=== PATIENT | male | born 1945 | race Caucasian/White ===

== ENCOUNTER 2018-12-19 13:11 | Inpatient (IN) | payer OTHER ==
[2018-12-19] VITALS (19 sets, daily range): BP systolic 93–128; BP diastolic 49–80
[~2018-12-19] VITALS: Ht 167.6 cm; Wt 97.1 kg
[2018-12-19 13:38] LABS: HEMATOCRIT 54.8 % (42.0-52.0); HEMOGLOBIN 17.4 g/dl (14.0-18.0); MEAN CELL VOLUME 101.5 fl (80.0-94.0); MEAN CORPUSCULAR HGB 32.2 pg (27.0-31.0); MEAN CORPUSCULAR HGB CONC 31.8 g/dl (33.0-37.0); MEAN PLATELET VOLUME 10.3 fl (9.6-12.3); NUCLEATED RED BLOOD CELL 0.1 % (0.0-0.0); PLATELET COUNT AUTOMATED 298 10*3/uL (130-400); RED CELL DISTRI WIDTH 13.6 % (0-14.5); WHITE BLOOD COUNT 22.9 10*3/uL (4.8-10.8)
[2018-12-19 13:49] LABS: ACT PARTIAL THROMBO TIME 29.6 SECONDS (20.0-32.1)
[2018-12-19 13:56] LABS: PLATELET SUFFICIENCY NORMAL (NORMAL); TOTAL CELLS COUNTED 100 #CELLS
[2018-12-19 14:00] LABS: ALBUMIN 3.2 gm/dl (3.1-4.5); CREATININE 1.69 mg/dL (0.70-1.30); POTASSIUM 3.6 mmol/L (3.5-5.1); TOTAL PROTEIN 8.1 gm/dL (6.4-8.2)
[2018-12-19 14:06] LABS: TROPONIN I 0.048 ng/ml (<0.045)
--- NOTE | 2018-12-19 14:11 | NUR ---
DR ROSE AWARE OF CRITICAL TROPONIN OF 0.048.
--- NOTE | 2018-12-19 15:31 | NUR ---
DR ROSE AWARE OF HEARTRATE IN THE 120'S. NO NEW ORDERS RECIEVED AT THIS TIME.
--- NOTE | 2018-12-19 16:00 | NUR ---
PT UNABLE TO ANSWER QUESTIONS AT THIS TIME, PT UNABLE TO OBEY COMMANDS AT THIS TIME. DR ROSE AWARE AND NEW ORDERS RECIEVED AT THIS TIME.
[2018-12-19 16:01] LABS: ABG BASE EXCESS 0.8 mmol/L (-2.0-2.0); ABG HCO3 35.7 mmol/l (22-26); ABG O2 SATURATION 98.2 % (95-97)
[2018-12-19 16:04] LABS: ARTERIAL BLOOD GAS PH 7.127 (7.35-7.45)
--- NOTE | 2018-12-19 16:10 | NUR ---
PT TAKEN TO ROOM [address] ROSE.
--- NOTE | 2018-12-19 16:25 | NUR ---
PT INTUBATED WITH 7.5 ETT 23 @ THE LIP. PLACEMENT CONFIRMED WITH CO2 DETECTOR. BILATERAL BREATH SOUNDS ASCULATED. ETT TUBED SECURED 23 @ LIP. DR[address] MILTON DEL VALLE PRESENT AT BEDSIDE DURING PROCEDURE. VITALS 115-120, SATS 97-100%, PT PLACED ON VENT. WILL CONTINUE MONITOR.
--- NOTE | 2018-12-19 16:25 | NUR ---
1624 100MG SUCCINYLCHOLINE GIVEN IV. 1624 20MG ETOMIDATE GIVEN IV. 1625 PT INTUBATED AT 23 LIP, WITH 7.5 SIZE TUBE. PT TOLERATED.
[2018-12-19 17:06] LABS: ABG BASE EXCESS -1.8 mmol/L (-2.0-2.0); ABG HCO3 34.1 mmol/l (22-26); ARTERIAL BLOOD GAS PO2 81.2 mmHg (80-90)
[2018-12-19 17:09] LABS: ARTERIAL BLOOD GAS PH 7.099 (7.35-7.45)
[2018-12-19 17:46] LABS: ABG BASE EXCESS -0.4 mmol/L (-2.0-2.0); ABG HCO3 32.4 mmol/l (22-26); ABG O2 SATURATION 95.2 % (95-97); ARTERIAL BLOOD GAS PO2 89.3 mmHg (80-90)
[2018-12-19 17:49] LABS: ARTERIAL BLOOD GAS PH 7.165 (7.35-7.45)
[2018-12-19 17:50] LABS: ARTERIAL BLOOD GAS PCO2 93.7 mmHg (35-45)
--- NOTE | 2018-12-19 18:33 | NUR ---
SET RATE INCREASED TO 20 FROM 16 DUE TO ABG RESULTS PER . WILL CONTINUE TO REASSESS PT NEEDED.
--- NOTE | 2018-12-19 20:10 | NUR ---
A 73, admitted to ICCU, under the services of SHIRA Nguyễn DO with a diagnosis of SEVERE SEPSIS, RESP. FAILURE. Chief complaint is SHORTNESS OF BREATH. Patient arrived via stretcher from ER. Monitor applied. Initial assessment completed. Vital signs taken and recorded. SHIRA NGUYỄN DO notified of admission to the unit. Orders received. See assessment for past medical history, medications and allergies. Patient and/or family oriented to unit. [facility] ICCU visitation policy reviewed. Clothing/patient valuable form completed. BONG PUCKETT A
[2018-12-19] MEDS ORDERED: Glimepiride1 MG PO (20:35)
[2018-12-19 21:18] LABS: ABG BASE EXCESS 1.6 mmol/L (-2.0-2.0); ABG HCO3 29.4 mmol/l (22-26); ABG O2 SATURATION 98.1 % (95-97); ARTERIAL BLOOD GAS PCO2 63.5 mmHg (35-45); ARTERIAL BLOOD GAS PH 7.291 (7.35-7.45)
[2018-12-19 21:22] LABS: BILIRUBIN NEGATIVE (NEGATIVE); BLOOD 1+ (NEGATIVE); CLARITY CLEAR (CLEAR); COLOR YELLOW (YELLOW); GLUCOSE NEGATIVE (NEGATIVE); KETONE NEGATIVE (NEGATIVE); LEUKO ESTERASE NEGATIVE (NEGATIVE); NITRITE NEGATIVE (NEGATIVE); PH 5.5 (5.0-9.0); SPECIFIC GRAVITY >= 1.030 (1.005-1.030)
[2018-12-19 21:29] LABS: BACTERIA 2+; EPITHELIAL CELLS 0-2; RBC 0-2 rbc/hpf (0-2)
[2018-12-19 21:30] LABS: COARSE GRANULAR CAST 15-20; MUCOUS TRACE
--- NOTE | 2018-12-19 21:40 | NUR ---
UPDATED DR. LUNDY WITH NEW BLOOD GASES, ORDERS FOR ABG'S IN THE AM.
[2018-12-20] VITALS (12 sets, daily range): BP systolic 93–110; BP diastolic 54–61
--- NOTE | 2018-12-20 01:20 | NUR ---
PATIENT AWAKE ON 10MCG OF DIPRIVAN, BP 90/50'S. PATIENT RESTLESS, VERSED GIVEN. EFFECTIVE ALMOST IMMEDIATELY. WILL CONTINUE TO MONITOR.
[2018-12-20 06:04] LABS: ALBUMIN 2.5 gm/dl (3.1-4.5); CREATININE 1.57 mg/dL (0.70-1.30); PHOSPHOROUS 2.6 mg/dL (2.5-4.9); POTASSIUM 4.2 mmol/L (3.5-5.1); TOTAL PROTEIN 6.5 gm/dL (6.4-8.2)
[2018-12-20 06:06] LABS: HEMATOCRIT 48.6 % (42.0-52.0); HEMOGLOBIN 15.1 g/dl (14.0-18.0); MEAN CELL VOLUME 101.5 fl (80.0-94.0); MEAN CORPUSCULAR HGB 31.5 pg (27.0-31.0); MEAN CORPUSCULAR HGB CONC 31.1 g/dl (33.0-37.0); MEAN PLATELET VOLUME 10.7 fl (9.6-12.3); NUCLEATED RED BLOOD CELL 0.1 % (0.0-0.0); PLATELET COUNT AUTOMATED 267 10*3/uL (130-400); RED BLOOD COUNT 4.79 10*6/uL (4.50-5.90); RED CELL DISTRI WIDTH 13.6 % (0-14.5); WHITE BLOOD COUNT 18.9 10*3/uL (4.8-10.8)
[2018-12-20 06:34] LABS: ACT PARTIAL THROMBO TIME 29.3 SECONDS (20.0-32.1)
[2018-12-20 06:47] LABS: TOTAL CELLS COUNTED 100 #CELLS
[2018-12-20 06:48] LABS: PLATELET SUFFICIENCY NORMAL (NORMAL); TOXIC GRANULATION SLIGHT
[2018-12-20 07:49] LABS: ABG BASE EXCESS 3.4 mmol/L (-2.0-2.0); ABG HCO3 30.7 mmol/l (22-26); ABG O2 SATURATION 97.8 % (95-97); ARTERIAL BLOOD GAS PCO2 60.3 mmHg (35-45); ARTERIAL BLOOD GAS PH 7.328 (7.35-7.45); ARTERIAL BLOOD GAS PO2 95.6 mmHg (80-90)
--- NOTE | 2018-12-20 09:00 | NUR ---
DR LUNDY CALLED. NO CHANGES TO VENT AT THIS TIME. ORDERS RECEIVED.
--- NOTE | 2018-12-20 10:00 | NUR ---
DR MOORE IN TO SEE PATIENT AND DISCUSS CARE WITH FAMILY.
--- NOTE | 2018-12-20 18:00 | NUR ---
PATIENT SUCTIONED USING YANKAR AND ENCLOSED SUCTION SYSTEM. MODERATE AMOUNT OF THICK YELLOW/GREEN SPUTUM OBTAINED. PATIENT TOLERATED WELL.
--- NOTE | 2018-12-20 19:37 | NUR ---
24 HR chart check completed.
[2018-12-21] VITALS (12 sets, daily range): BP systolic 92–117; BP diastolic 48–64
[2018-12-21 06:11] LABS: ALBUMIN 2.3 gm/dl (3.1-4.5); CREATININE 1.44 mg/dL (0.70-1.30); PHOSPHOROUS 3.2 mg/dL (2.5-4.9); POTASSIUM 4.1 mmol/L (3.5-5.1); TOTAL PROTEIN 6.3 gm/dL (6.4-8.2)
[2018-12-21 06:14] LABS: HEMATOCRIT 47.7 % (42.0-52.0); MEAN CELL VOLUME 100.4 fl (80.0-94.0); MEAN CORPUSCULAR HGB 31.6 pg (27.0-31.0); MEAN CORPUSCULAR HGB CONC 31.4 g/dl (33.0-37.0); MEAN PLATELET VOLUME 10.5 fl (9.6-12.3); NUCLEATED RED BLOOD CELL 0.1 % (0.0-0.0); PLATELET COUNT AUTOMATED 263 10*3/uL (130-400); RED BLOOD COUNT 4.75 10*6/uL (4.50-5.90); RED CELL DISTRI WIDTH 13.4 % (0-14.5); WHITE BLOOD COUNT 17.3 10*3/uL (4.8-10.8)
[2018-12-21 06:58] LABS: PLATELET SUFFICIENCY NORMAL (NORMAL); TOTAL CELLS COUNTED 100 #CELLS
--- NOTE | 2018-12-21 08:00 | NUR ---
REMAINS INTUBATED, ETT SECURE AT 23 CM, SEDATION OFF AND PT FULLY AROUSES WITHIN MINUTES, GIVES THE THUMBS UP SIGN, ASSIST IN TURNING, THEN SEDATION RESUMED, IV SITES RIGHT ARM X 2 PATENT, KESSLER AND OGT W/ PULMOCARE AT 20 AND IS TOLERATING WELL
[2018-12-21 08:14] LABS: ABG BASE EXCESS 7.5 mmol/L (-2.0-2.0); ABG HCO3 34.2 mmol/l (22-26); ARTERIAL BLOOD GAS PCO2 58.5 mmHg (35-45); ARTERIAL BLOOD GAS PH 7.385 (7.35-7.45); ARTERIAL BLOOD GAS PO2 95.3 mmHg (80-90)
--- NOTE | 2018-12-21 09:45 | NUR ---
FAMILY IN TO VS AND UPDATED
--- NOTE | 2018-12-21 10:04 | NUR ---
Occupational therapy orders receieved and chart reviewed this date, 12/21/18. Patient not appropriate for occupational therapy evaluation at this time secondary to patient being on a ventilator. OTR will follow up when appropriate. Thank you for the referral. Ingrid Newman OTR/L
--- NOTE | 2018-12-21 10:04 | NUR ---
PHYSICAL THERAPY Physical therapy evaluation attempted. Patient on mechanical ventiliation at this time and is not appropriate for skilled PT evaluation. Will try PT evaluation at a later date, when medically appropriate. Thank you. Ankita Hubbard,PT,DPT.
--- NOTE | 2018-12-21 12:15 | NUR ---
DR LUNDY HERE AND SPOKE WITH FAMILY, PT FOR BRONCH IN AM
--- NOTE | 2018-12-21 12:55 | NUR ---
12:[address] LUNDY, FIO2 DECREASED TO 40% AND ETT ADVANCED TO 241/2 AT THE LIP. PT TOLERATED WELL. BBSs EQUAL BILATERALLY.
[2018-12-21 14:36] LABS: ACT PARTIAL THROMBO TIME 26.2 SECONDS (20.0-32.1); INTERNATIONAL NORM RATIO 0.9 (2.0-3.5)
--- NOTE | 2018-12-21 16:11 | NUR ---
CONDITION UNCHANGED, ETT READJUSTED BY RESP TO 24.5 CM AT LIP, FIO2 DECREASED TO 40%, PT MODERATELY SEDATED AND RESTING COMFORTABLY
--- NOTE | 2018-12-21 19:09 | NUR ---
Shift chart check completed.
[2018-12-22] VITALS (12 sets, daily range): BP systolic 94–116; BP diastolic 45–65
[2018-12-22 05:59] LABS: HEMATOCRIT 48.7 % (42.0-52.0); HEMOGLOBIN 15.4 g/dl (14.0-18.0); MEAN CELL VOLUME 100.6 fl (80.0-94.0); MEAN CORPUSCULAR HGB 31.8 pg (27.0-31.0); MEAN CORPUSCULAR HGB CONC 31.6 g/dl (33.0-37.0); MEAN PLATELET VOLUME 10.4 fl (9.6-12.3); PLATELET COUNT AUTOMATED 260 10*3/uL (130-400); RED BLOOD COUNT 4.84 10*6/uL (4.50-5.90); RED CELL DISTRI WIDTH 13.5 % (0-14.5); WHITE BLOOD COUNT 18.3 10*3/uL (4.8-10.8)
[2018-12-22 06:11] LABS: ALBUMIN 2.3 gm/dl (3.1-4.5); ALKALINE PHOSPHATASE 88 U/L (45-117); BUN 25 mg/dl (7-24); CHLORIDE 102 mmol/L (98-107); CREATININE 1.19 mg/dL (0.70-1.30); PHOSPHOROUS 3.6 mg/dL (2.5-4.9); POTASSIUM 4.1 mmol/L (3.5-5.1); SGOT/AST 38 IU/L (3-35); SGPT/ALT 38 U/L (12-78); SODIUM 140 mmol/L (136-145); TOTAL PROTEIN 6.6 gm/dL (6.4-8.2)
[2018-12-22 06:42] LABS: PLATELET SUFFICIENCY NORMAL (NORMAL); TOTAL CELLS COUNTED 100 #CELLS
[2018-12-22 07:31] LABS: ABG BASE EXCESS 6.7 mmol/L (-2.0-2.0); ABG HCO3 32.2 mmol/l (22-26); ABG O2 SATURATION 97.9 % (95-97); ARTERIAL BLOOD GAS PCO2 49.9 mmHg (35-45); ARTERIAL BLOOD GAS PH 7.425 (7.35-7.45)
--- NOTE | 2018-12-22 08:42 | NUR ---
DR LUNDY IN TO SEE PT.
--- NOTE | 2018-12-22 09:00 | NUR ---
case management did not visit with patient, patient is on a vent at this time, discharge plan undecided at this time
--- NOTE | 2018-12-22 09:01 | NUR ---
DR MOORE IN TO SEE PT.
--- NOTE | 2018-12-22 10:30 | NUR ---
BRONCHOSCOPY RESCHEDULED FOR 7AM TOMORROW. FAMILY AWARE.
--- NOTE | 2018-12-22 13:38 | NUR ---
Patient remains on a ventilator and not appropriate for Occupational Therapy. Discharge OT referral at this time. Thank you. Mary Rios OTR/L
--- NOTE | 2018-12-22 15:14 | NUR ---
PHYSICAL THERAPY Phyiscal therapy evaluation attempted this date. Patient not appropriate for skilled PT evaluation at this time. Discharge PT orders. Please order PT evaluation when medically appropriate. Thank you. Ankita Hubbard,PT,DPT.
--- NOTE | 2018-12-22 18:13 | NUR ---
PT'S FAMILY IN TO VISIT MULTIPLE TIMES TODAY. PT'S LEAVING FOR THE NIGHT. [facility] NUMBER GIVEN TO PT'S SO HSHE CAN CALL LATER TONIGHT. SHE WILL BE BACK IN AM AROUND 6AM TO SEE PT PRIOR TO SURGERY.
--- NOTE | 2018-12-22 20:04 | NUR ---
PT. RESTING COMFORTABLY. OPENS EYES TO VERBAL STIMULI. ADEQUATELY SEDATED ON DIPROVAN DRIP AT 30 MICS VIA RAN, SITE IN RAN AND ADENIKE ASYMPT. KESSLER DRAINING A YELLOW/GREEN URINE. LUNGS CLEAR BUT DIMINISHED BILAT, PULSE OX 92% ON 35% FIO2. ABDOMEN SOFT, NONDISTENDED AND NORMO. PULMOCARE TF VIA OGT INFUSING ORDERED, NO RESIDUAL NOTED, PLACEMENT CONFIRMED WITH AIR BOLUS. NO PERIPHERAL EDEMA NOTED. SCD'S BILAT. PT. GIVEN ORAL MOUTH CARE AND SUCTIONED ORALLY AND VIA ENDO FOR MODERATE AMTS OF CLEAR AND WHITE/YELLOW MUCOUS. SOFT WRIST RESTRAINTS ON BILAT TO PREVENT ACCIDENTAL SELF-EXTUBATION. BONG PUCKETT RN
[2018-12-23] VITALS (8 sets, daily range): BP systolic 102–125; BP diastolic 53–69
[2018-12-23 05:01] LABS: HEMATOCRIT 49.5 % (42.0-52.0); HEMOGLOBIN 15.9 g/dl (14.0-18.0); MEAN CELL VOLUME 98.2 fl (80.0-94.0); MEAN CORPUSCULAR HGB 31.5 pg (27.0-31.0); MEAN CORPUSCULAR HGB CONC 32.1 g/dl (33.0-37.0); MEAN PLATELET VOLUME 10.1 fl (9.6-12.3); PLATELET COUNT AUTOMATED 284 10*3/uL (130-400); RED BLOOD COUNT 5.04 10*6/uL (4.50-5.90); RED CELL DISTRI WIDTH 13.4 % (0-14.5); WHITE BLOOD COUNT 20.6 10*3/uL (4.8-10.8)
[2018-12-23 05:28] LABS: ALBUMIN 2.3 gm/dl (3.1-4.5); ALKALINE PHOSPHATASE 81 U/L (45-117); BUN 29 mg/dl (7-24); CHLORIDE 102 mmol/L (98-107); POTASSIUM 4.6 mmol/L (3.5-5.1); SGOT/AST 32 IU/L (3-35); SGPT/ALT 37 U/L (12-78); SODIUM 139 mmol/L (136-145); TOTAL PROTEIN 6.9 gm/dL (6.4-8.2)
[2018-12-23 06:25] LABS: PLASMA CELL 1 % (0-0); PLATELET SUFFICIENCY NORMAL (NORMAL); TOTAL CELLS COUNTED 100 #CELLS; TOXIC GRANULATION SLIGHT
--- NOTE | 2018-12-23 07:00 | NUR ---
TAKEN DOWN TO SURGERY FOR BRONCH.
--- NOTE | 2018-12-23 07:30 | NUR ---
BACK FROM HAVING BRONCH. VITALS STABLE. SCATTERED RHONCHI HEARD IN LUNG [place]. REMAINS ON VENT WITH SETTINGS TV 550;CMV 20;FIO2 35%; AND A PEEP OF 8. SUCTIONED FOR LARGE AMOUNT ORAL SECRETIONS. HEP LOCKS INTACT TO ADENIKE AND RAN. SCD'S AND STOCKINETTE ON TO BILATERAL LOWER EXTREMITIES. KESSLER DRAINING DARK SAMANTHA URINE
--- NOTE | 2018-12-23 10:20 | NUR ---
EXTUBATED. PLACED ON NASAL CANNULA. 6L.
[2018-12-23 10:40] LABS: ABG BASE EXCESS 6.6 mmol/L (-2.0-2.0); ABG HCO3 33.4 mmol/l (22-26); ABG O2 SATURATION 95.6 % (95-97); ARTERIAL BLOOD GAS PCO2 56.7 mmHg (35-45); ARTERIAL BLOOD GAS PH 7.387 (7.35-7.45); ARTERIAL BLOOD GAS PO2 84.9 mmHg (80-90)
--- NOTE | 2018-12-23 13:10 | NUR ---
Occupational Therapy eval complete in ICCU with full eval to follow. Precautions include ICCU unit precautions, fall risk, bed alarm, IV UE, 5L O2 via NC and kohler catheter, high complexity level [id number] via chart review, testing, and eval. Recommend OT per POC and discharge to SNF to enable safe return home at prior level of independence. Thank you for this referral. Mireya Rodriguez S/OT Mary Rios OTR/L
--- NOTE | 2018-12-23 13:10 | NUR ---
PHYSICAL THERAPY Physical therapy evaluation completed. Full details and evaluation to follow. Moderate complexity skilled physical evaluation completed ([id number]). PT will work on transfers, gait, endurance, balance, and safety per POC. Recommend SNF upon discharge. Thank you Lisa Corey,KYLEE Hubbard,PT,DPT.
--- NOTE | 2018-12-23 14:58 | NUR ---
Patient referral faxed to [facility] for review. Waiting on review/acceptance.
--- NOTE | 2018-12-23 19:57 | NUR ---
PT. UP IN CHAIR. HEP LOCK IN LA AND RW ASYMPT. CARDIZEM DRIP INFUSING ORDERED, SITE ASYMPT. LUNGS DIMINISHED BILAT BUT CLEAR, PULSE OX 95% ON 2L NC. ABDOMEN SOFT, NONDISTENDED AND NORMO. NO PERIPHERAL EDEMA NOTED. PT. REMAINS ALERT AND ORIENTED x3, RESP. EASY AND REG, NO DISTRESS. BONG PUCKETT RN
--- NOTE | 2018-12-23 19:59 | NUR ---
PT. RESTING IN CHAIR. LUNGS DIMINISHED BILAT, PULSE OX 94% ON 4L NC. ABDOMEN SOFTLY DISTENDED AND NORMO. NO PERIPHERAL EDEMA NOTED. PT. DENIES SOB OR DISCOMFORT. RESP. EASY AND REG, NO DISTRESS. BONG PUCKETT RN
[2018-12-24] VITALS: BP 110/59
[2018-12-24 04:00] VITALS: BP 110/60
[2018-12-24 05:04] LABS: HEMOGLOBIN 16.5 g/dl (14.0-18.0); MEAN CORPUSCULAR HGB 32.4 pg (27.0-31.0); MEAN CORPUSCULAR HGB CONC 32.4 g/dl (33.0-37.0); MEAN PLATELET VOLUME 10.3 fl (9.6-12.3); PLATELET COUNT AUTOMATED 254 10*3/uL (130-400); RED CELL DISTRI WIDTH 13.5 % (0-14.5); WHITE BLOOD COUNT 18.5 10*3/uL (4.8-10.8)
[2018-12-24 05:20] LABS: ALBUMIN 2.2 gm/dl (3.1-4.5); ALKALINE PHOSPHATASE 69 U/L (45-117); BUN 33 mg/dl (7-24); CHLORIDE 102 mmol/L (98-107); CREATININE 1.13 mg/dL (0.70-1.30); POTASSIUM 4.6 mmol/L (3.5-5.1); SGOT/AST 47 IU/L (3-35); SGPT/ALT 44 U/L (12-78); SODIUM 138 mmol/L (136-145); TOTAL PROTEIN 6.8 gm/dL (6.4-8.2)
[2018-12-24 05:27] LABS: TOTAL CELLS COUNTED 100 #CELLS
[2018-12-24 05:28] LABS: BURR CELLS FEW; PLATELET SUFFICIENCY NORMAL (NORMAL)
[2018-12-24 08:00] VITALS: BP 123/73
--- NOTE | 2018-12-24 08:00 | NUR ---
PLACED UP INTO CHAIR WITH ASSIST TIMES ONE. PLEASANT. ALERT AND ORIENTED TIMES THREE. PULSE OX 95% ON 4L NASAL CANNULA. NO EDEMA NOTED
--- NOTE | 2018-12-24 11:48 | NUR ---
PHYSICAL THERAPY Patient presented to therapy in sitting in bedside chair in [facility] with 4 liters of spO2 via nasal canula. Patient is connected to heart monitor. Patient was identified by name and on wristband. Patient gives informed consent for treatent. Patient was connected to portable moniter and O2 tank at 4 liters of spO2. Patient's resting HR is 85 and O2 SAT is 91%. Patient performed sit to stand from bedside chair CGA X 1. Patient stood in front of chair for 3 minutes with O2 SAT remaining between 89% - 91% and pulse at 88 - 91. Patient required only SBA while standing for 3 minutes. Patient performed ambulation with CGA X 1 AND NO ASSISTIVE DEVICE for 24' x 1 total distance with no LOB or other difficulty. Patient's O2 SATS were recorded as 89% - 92% with ambulation of 24' x 1 and pulse was WNL. Patient performed x 9 sit to stands in 30 seconds with use of UEs with SBA from bedside chair. Patient was left in sitting in bed side chair with call light within reach, heart monitor reconnected, and o2 connected to wall OUTLET with 4 liters of spO2. Patient's final vitals were recorded as B/P= 127/63, PULSE= 85, O2= 92%. Patient was 1:1 with this TIP MENDER for 17 minutes total. KAMERON DELGADO TIP MENDER
--- NOTE | 2018-12-24 11:50 | NUR ---
OT NOTE Pt was seen this A.M. 1:1 for 20 minute OT session. Upon arrival pt was sitting upright in the recliner. Pt identified by name and and had no complaints at this time, pt reported "I feel great, better than I ever thought I could." Pt presented to therapy with continuous 4L-O2 via NC which he remained on throughout entire session. Pt's resting heart rate was 85 bpm and SpO2 90%. While sitting requested for pt to doff and mundo B socks. Pt had good carry over of energy conservation by bringing his leg up to his knee. Sit to stand completed from chair level with CGA for safety. Functional mobility completed around the room with CGA. Challenged pt's dynamic standing balance while reaching over all planes, crossing midline, and weight shifting. Pt was able to maintain F standing balance throughout. Throughout pt's SpO2 reamined between 89-92%. Pt was left sitting upright in the recliner with call light in hand, tray table in place, and ICCU nurse notified. Continue with rec D/C plan to SNF. EWELINA Maza
[2018-12-24 12:00] VITALS: BP 127/63
--- NOTE | 2018-12-24 13:40 | NUR ---
TRANSFERRED TO ROOM 426 VIA CHAIR. REPORT CALLED TO EVY
--- NOTE | 2018-12-24 14:29 | NUR ---
PHYSICAL THERAPY Patient presented to therapy in sitting in room 426-1 with 4 liters of spO2 VIA NASAL CANULA. Patient was identified by name and on wristband. Patient gives informed consent for treatment. Patient performed sit to stand transfer with SBA from bedside chair. Patient performed ambulated with CGA X 1 for 60' x 2 with no LOB and no SOB. Patient's O2 SAT was recorded as 94% and pulse 92 prior to ambulation. Patient's O2 sat following ambulation was 92% and pulse 102. Patient is on 4 liters of spO2. Patient was left sitting in bed side chair with call light within reach and daughter and visiting with the patient in the room. Patient was 1:1 with this AREA ATTENDANT for 16 minutes total. KAMERON DELGADO AREA ATTENDANT
[2018-12-24 15:08] LABS: ACID FAST SPEC PROCESSING Concentration (.)
--- NOTE | 2018-12-24 15:17 | NUR ---
PHYSICAL THERAPY CO-SIGN I approve of the Physical Therapy notes written above. TIA GALLOWAY PT,DPT
[2018-12-24 16:00] VITALS: BP 119/62
--- NOTE | 2018-12-24 19:00 | NUR ---
TOOK OVER CARE FOR THIS PATIENT AT THIS TIME. PT APPEARS TO BE WITHOUT ANY DISTRESS. RESPS ARE EASY AND NONLABORED WITH 4L NC IN USE. NO COMPLAINTS VOICED AT THIS TIME. CALL LIGHT IS WITHIN REACH, WILL CONTINUE TO MONITOR.
[2018-12-24 20:00] VITALS: BP 117/51
--- NOTE | 2018-12-24 20:35 | NUR ---
ASSESSMENT COMPLETED AT THIS TIME, DENIES ANY PAIN OR DISTRESS. NC 4LPM OXYGEN IN USE, SEATED UP IN RECLINER, A&O X3, PLEASANT AND COOPERATIVE. CALL LIGHT WITHIN REACH, WILL CONTINUE TO MONITOR.
[2018-12-25] VITALS: BP 111/64
--- NOTE | 2018-12-25 00:35 | NUR ---
RESTING IN RECLINER AT THIS TIME. NC 4LPM OXYGEN IN USE, RESPIRATIONS EASY AND REGULAR. NO APPARENT SIGNS OF DISTRESS. CALL LIGHT WITHIN REACH. WILL CONTINUE TO MONITOR.
[2018-12-25 06:50] LABS: HEMATOCRIT 52.1 % (42.0-52.0); HEMOGLOBIN 16.8 g/dl (14.0-18.0); MEAN CORPUSCULAR HGB 32.2 pg (27.0-31.0); MEAN CORPUSCULAR HGB CONC 32.2 g/dl (33.0-37.0); MEAN PLATELET VOLUME 10.1 fl (9.6-12.3); PLATELET COUNT AUTOMATED 243 10*3/uL (130-400); RED BLOOD COUNT 5.21 10*6/uL (4.50-5.90); RED CELL DISTRI WIDTH 13.4 % (0-14.5); WHITE BLOOD COUNT 18.8 10*3/uL (4.8-10.8)
[2018-12-25 07:23] LABS: PLATELET SUFFICIENCY NORMAL (NORMAL); TOTAL CELLS COUNTED 100 #CELLS
--- NOTE | 2018-12-25 07:24 | NUR ---
updated clinicals and therapy notes faxed to [facility] for precert, waiting on auth
[2018-12-25 07:38] LABS: BUN 36 mg/dl (7-24); CHLORIDE 103 mmol/L (98-107); CREATININE 1.18 mg/dL (0.70-1.30); POTASSIUM 4.4 mmol/L (3.5-5.1); SODIUM 138 mmol/L (136-145)
[2018-12-25 08:00] VITALS: BP 118/60
--- NOTE | 2018-12-25 08:20 | NUR ---
In to see patient to discuss rehab options. He stated he is feeling really good and is working with therapy. The decision is to have precert started at [facility] to cover the weekend; Patient stated he would like to have that option, but if he feels good when he is ready for discharge he may also opt to go home. Contacted [facility] and faxed updates to start precert.
--- NOTE | 2018-12-25 08:50 | NUR ---
PT OFF FLOOR FOR CXR AT THIS TIME.
--- NOTE | 2018-12-25 09:10 | NUR ---
PT RETURNED FROM CXR AT THIS TIME.
--- NOTE | 2018-12-25 10:00 | NUR ---
OT NOTE Pt was seen this A.M. 1:1 for 20 minute OT session. Upon arrival pt was sitting upright in the recliner. Pt identified by name and and had no complaints at this time stating "I feel great." Pt presented to therapy with continuous 3L-O2 via NC which he remained on throughout entire session. At rest pt's SpO2 was 93% and heart rate 92 bpm. Sit to stand completed from chair level with SBA. Functional mobility completed around the room with CGA for safety. Challenged pt's dynamic standing balance needed for increased I and enhanced safety while weight shifting, crossing midline, and reaching over all planes. Pt was able to maintain F+ standing balance throughout requiring two verbal prompts to step closer to the item versus reaching outside of base of support. Pt was then educated on energy conservation and breathing techniques during ADL tasks. Throughout tasks pt's SpO2 dropped to 85% and after 60 second recovery pt's SpO2 raised back to 92%. Pt was left sitting upright in the recliner with call light in hand and at bedside. Continue with rec D/C plan to SNF. JUANA Maza/Hiren
--- NOTE | 2018-12-25 10:05 | NUR ---
PHYSICAL THERAPY Patient seen this am 1:1 for therapy visit and was sitting up in bedside chair with continuous O2-3L via NC upon therapist arrival. Patient was pleasant reporting no new c/o's and recorded resting HR 92 bpm, SpO2 93%. Patient transfers sit to stand CGA and ambulates without AD, 50'x 2, CGA, demonstrating increased fatigue and mild SOB. Patient needed v/c for purse lip breathing technique, including brief standing rest break < 30 seconds. Patient returned to bedside chair with SpO2 drop to 85%, HR 108 bpm. Vital signs returned to near baseline within 1 minute as patient remained in chair with call light and cell phone. Will continue per POC as tolerated, total treatment time 16 minutes. Royal Avina, MANAGED CARE PROVIDER
--- NOTE | 2018-12-25 11:00 | NUR ---
HOME O2 ASSESSMENT ROOM AIR AT REST: SPO2 86%, HR 92, RR 24, BP 124/64 NC 2L AT REST: SPO2 87-88%, HR 110, RR 24 NC 3L AT REST: SPO2 94%, HR 104, RR 20 NC 3L WITH AMBULATION: SPO2 90-91%, HR 100-118, RR 24 RECOVERY ON 3L NC: SPO2 94%, HR 96, RR 20, BP 135/72 PT. REQUIRED 3L CONTINUOUSLY, RN AWARE.
[2018-12-25 12:00] VITALS: BP 124/63
[2018-12-25] MEDS ORDERED: OXYGEN NAS (13:33)
[2018-12-25 16:00] VITALS: BP 131/59
--- NOTE | 2018-12-25 17:00 | NUR ---
PT UP IN CHAIR. NO DISTRESS NOTED. O2 INTACT AT 3L NC. CALL LIGHT WITHIN REACH.
--- NOTE | 2018-12-25 17:42 | NUR ---
DR TORRES MADE AWARE THAT PT QUALIFIES FOR 3L NC CONTINUOUSLY.
[2018-12-25 20:00] VITALS: BP 127/65
[2018-12-26] VITALS: BP 127/65
[2018-12-26 08:00] VITALS: BP 102/60
[2018-12-26 10:36] LABS: HEMATOCRIT 52.7 % (42.0-52.0); HEMOGLOBIN 16.8 g/dl (14.0-18.0); MEAN CELL VOLUME 99.6 fl (80.0-94.0); MEAN CORPUSCULAR HGB 31.8 pg (27.0-31.0); MEAN CORPUSCULAR HGB CONC 31.9 g/dl (33.0-37.0); MEAN PLATELET VOLUME 10.1 fl (9.6-12.3); PLATELET COUNT AUTOMATED 242 10*3/uL (130-400); RED BLOOD COUNT 5.29 10*6/uL (4.50-5.90); RED CELL DISTRI WIDTH 13.5 % (0-14.5); WHITE BLOOD COUNT 15.7 10*3/uL (4.8-10.8)
[2018-12-26 11:04] LABS: ALBUMIN 2.7 gm/dl (3.1-4.5); ALKALINE PHOSPHATASE 63 U/L (45-117); BUN 36 mg/dl (7-24); CHLORIDE 101 mmol/L (98-107); CREATININE 1.27 mg/dL (0.70-1.30); POTASSIUM 3.8 mmol/L (3.5-5.1); SGOT/AST 36 IU/L (3-35); SGPT/ALT 57 U/L (12-78); SODIUM 140 mmol/L (136-145); TOTAL PROTEIN 6.9 gm/dL (6.4-8.2)
[2018-12-26 11:07] LABS: BASOPHILS 1 % (0-1); PLATELET SUFFICIENCY NORMAL (NORMAL); TOTAL CELLS COUNTED 100 #CELLS; TOXIC GRANULATION SLIGHT
[2018-12-26 12:00] VITALS: BP 117/56
[2018-12-26] MEDS ORDERED: PREDNISONE10 MG PO (12:15)
--- NOTE | 2018-12-26 13:46 | NUR ---
Discharge instructions reviewed with patient/family. Patient receptive and verbalizes understanding. Follow-up care arranged. Written instructions given to patient/family. [employer] here to drop off oxygen and instruct pt on use. TANIA DILLARD
--- NOTE | 2018-12-26 14:34 | NUR ---
Pt dc in care of .
--- NOTE | 2018-12-28 09:19 | NUR ---
PHYSICAL THERAPY CO-SIGN I approve of the Physical Therapy notes written above. TIA GALLOWAY PT,DPT
--- NOTE | 2018-12-28 09:23 | NUR ---
OCCUPATIONAL THERAPY CO-SIGN I approve of the Occupational Therapy notes written above. NUVIA ANAYA OTR/Hiren
[2019-02-06 07:09] LABS: ACID FAST CULTURE Negative (.)
== END 2018-12-26 14:34 | disposition home or self-care (01) | DRG 871 ==
LOC: ED 13:11 → ICCU 18:29 → EDHOLD 18:29 → ICCU 18:52 → 4E 12-24 14:03
PROVIDERS: Emergency Medicine; Family Medicine; Hospitalist; Internal Medicine; Internal Medicine Critical Care Medicine; Student in an Organized Health Care Education/Training Program; ADMIT Internal Medicine
PROC: 0BH17EZ Insertion of Endotracheal Airway into Trachea, Via Natural or Artificial Opening (ICD-10-PCS; principal; 2018-12-19)
PROC: 5A1945Z Respiratory Ventilation, 24-96 Consecutive Hours (ICD-10-PCS; principal; 2018-12-19)
PROC: 0BC28ZZ Extirpation of Matter from Carina, Via Natural or Artificial Opening Endoscopic (ICD-10-PCS; 2018-12-23)
PROC: 0BC58ZZ Extirpation of Matter from Right Middle Lobe Bronchus, Via Natural or Artificial Opening Endoscopic (ICD-10-PCS; 2018-12-23)
PROC: 0BC18ZZ Extirpation of Matter from Trachea, Via Natural or Artificial Opening Endoscopic (ICD-10-PCS; 2018-12-23)
PROC: 0BC78ZZ Extirpation of Matter from Left Main Bronchus, Via Natural or Artificial Opening Endoscopic (ICD-10-PCS; 2018-12-23)
PROC: 0BC98ZZ Extirpation of Matter from Lingula Bronchus, Via Natural or Artificial Opening Endoscopic (ICD-10-PCS; 2018-12-23)
PROC: 0BC88ZZ Extirpation of Matter from Left Upper Lobe Bronchus, Via Natural or Artificial Opening Endoscopic (ICD-10-PCS; 2018-12-23)
PROC: 0BCB8ZZ Extirpation of Matter from Left Lower Lobe Bronchus, Via Natural or Artificial Opening Endoscopic (ICD-10-PCS; 2018-12-23)
PROC: 0BC68ZZ Extirpation of Matter from Right Lower Lobe Bronchus, Via Natural or Artificial Opening Endoscopic (ICD-10-PCS; 2018-12-23)
PROC: 0BC38ZZ Extirpation of Matter from Right Main Bronchus, Via Natural or Artificial Opening Endoscopic (ICD-10-PCS; 2018-12-23)
PROC: 0BC48ZZ Extirpation of Matter from Right Upper Lobe Bronchus, Via Natural or Artificial Opening Endoscopic (ICD-10-PCS; 2018-12-23)
PROC: 5A09357 Assistance with Respiratory Ventilation, Less than 24 Consecutive Hours, Continuous Positive Airway Pressure (ICD-10-PCS; 2018-12-24)
DX: A41.9 Sepsis, unspecified organism (principal); J96.02 Acute respiratory failure with hypercapnia; E43 Unspecified severe protein-calorie malnutrition; J69.0 Pneumonitis due to inhalation of food and vomit; J96.01 Acute respiratory failure with hypoxia; N17.9 Acute kidney failure, unspecified; E87.4 Mixed disorder of acid-base balance; J44.1 Chronic obstructive pulmonary disease with (acute) exacerbation; J98.11 Atelectasis; T17.590A Other foreign object in bronchus causing asphyxiation, initial encounter; E11.65 Type 2 diabetes mellitus with hyperglycemia; E11.22 Type 2 diabetes mellitus with diabetic chronic kidney disease; R65.20 Severe sepsis without septic shock; N18.9 Chronic kidney disease, unspecified; F17.200 Nicotine dependence, unspecified, uncomplicated; I12.9 Hypertensive chronic kidney disease with stage 1 through stage 4 chronic kidney disease, or unspecified chronic kidney disease; D75.1 Secondary polycythemia; E83.41 Hypermagnesemia; R74.0 Nonspecific elevation of levels of transaminase and lactic acid dehydrogenase [LDH]; D53.9 Nutritional anemia, unspecified; J20.9 Acute bronchitis, unspecified; T38.0X5A Adverse effect of glucocorticoids and synthetic analogues, initial encounter; X58.XXXA Exposure to other specified factors, initial encounter; Y93.89 Activity, other specified; Y99.8 Other external cause status; Y92.89 Other specified places as the place of occurrence of the external cause; Z68.34 Body mass index [BMI] 34.0-34.9, adult

== ENCOUNTER → 2021-01-11 | Outpatient (CLI) | payer OTHER ==
[~2021-01-11] MED LIST: Glimepiride1 MG PO; OXYGEN NAS; PREDNISONE10 MG PO
== END | disposition home or self-care (01) ==
LOC: COVID19 15:15
PROVIDERS: ATTEND Internal Medicine
DX: U07.1 COVID-19 (principal)

== ENCOUNTER 2021-08-17 12:48 | Emergency (ER) | payer MEDICARE, OTHER ==
[~2021-08-17] VITALS: Ht 167.6 cm; Wt 104.3 kg
[2021-08-17] MEDS ORDERED: METHYLPRED-DP4 MG PO (13:05)
[2021-08-17] MEDS ORDERED: ARNUITY ELLIPT50 MCG NAS (13:05)
[2021-08-17] MEDS ORDERED: LISINOPRIL20 MG PO (13:05)
[2021-08-17] MEDS ORDERED: BUDESONIDE-FO10.2 G1 INH (13:06)
[2021-08-17 13:18] LABS: HEMATOCRIT 44.3 % (42.0-52.0); MEAN CELL VOLUME 95.5 fl (80.0-94.0); MEAN CORPUSCULAR HGB 30.8 pg (27.0-31.0); MEAN CORPUSCULAR HGB CONC 32.3 g/dl (33.0-37.0); MEAN PLATELET VOLUME 9.6 fl (9.6-12.3); PLATELET COUNT AUTOMATED 443 10*3/uL (130-400); RED BLOOD COUNT 4.64 10*6/uL (4.50-5.90); RED CELL DISTRI WIDTH 13.4 % (0-14.5); WHITE BLOOD COUNT 23.2 10*3/uL (4.8-10.8)
[2021-08-17 13:19] LABS: MANUAL DIFF REFLEX YES
[2021-08-17 13:34] LABS: CREATININE 2.13 mg/dL (0.70-1.30); POTASSIUM 4.4 mmol/L (3.5-5.1); TOTAL PROTEIN 7.3 gm/dL (6.4-8.2)
[2021-08-17 13:41] LABS: PLATELET SUFFICIENCY HIGH (NORMAL); TOTAL CELLS COUNTED 100 #CELLS
[2021-08-17 13:42] LABS: POLYCHROMASIA SLIGHT; TOXIC GRANULATION SLIGHT
[2021-08-17] MEDS ORDERED: DOXYCYCLINE HY100 M3 PO (16:11)
[2021-08-17] MEDS ORDERED: PREDNISONE10 MG PO (16:11)
== END 2021-08-17 16:12 | disposition home or self-care (01) ==
LOC: ED 12:48
PROVIDERS: Family Medicine
DX: J44.1 Chronic obstructive pulmonary disease with (acute) exacerbation (principal); Z88.0 Allergy status to penicillin; Z91.013 Allergy to seafood; Z79.899 Other long term (current) drug therapy

== ENCOUNTER 2022-07-27 21:15 | Inpatient (IN) | payer MEDICARE, OTHER ==
[~2022-07-27] VITALS: Ht 167.6 cm; Wt 100.2 kg
[~2022-07-27 21:15] MED LIST changes: +ARNUITY ELLIPT50 MCG NAS; +BUDESONIDE-FO10.2 G1 INH; +DOXYCYCLINE HY100 M3 PO; +LISINOPRIL20 MG PO; +METHYLPRED-DP4 MG PO
[2022-07-27 21:38] VITALS: BP 123/51
[2022-07-27 23:07] LABS: HEMATOCRIT 42.4 % (42.0-52.0); MEAN CELL VOLUME 94.4 fl (80.0-94.0); MEAN CORPUSCULAR HGB 31.4 pg (27.0-31.0); MEAN CORPUSCULAR HGB CONC 33.3 g/dl (33.0-37.0); MEAN PLATELET VOLUME 10.1 fl (9.6-12.3); PLATELET COUNT AUTOMATED 302 10*3/uL (130-400); RED BLOOD COUNT 4.49 10*6/uL (4.50-5.90); RED CELL DISTRI WIDTH 13.7 % (0-14.5); WHITE BLOOD COUNT 24.8 10*3/uL (4.8-10.8)
[2022-07-27 23:08] LABS: MANUAL DIFF REFLEX YES
[2022-07-27 23:18] LABS: ACT PARTIAL THROMBO TIME 31.2 SECONDS (20.0-32.1); INTERNATIONAL NORM RATIO 1.1 (2.0-3.5)
[2022-07-27 23:23] LABS: POTASSIUM 4.1 mmol/L (3.4-5.1); TOTAL PROTEIN 6.9 gm/dL (6.0-8.0)
[2022-07-27 23:31] LABS: PLATELET SUFFICIENCY NORMAL (NORMAL); TOTAL CELLS COUNTED 100 #CELLS
[2022-07-28] VITALS (7 sets, daily range): BP systolic 92–125; BP diastolic 42–75
[2022-07-28] MEDS ORDERED: JARDIANCE10 MG PO (00:34)
[2022-07-28] MEDS ORDERED: PROVENTIL HFA6.7 GM INH (00:39)
[2022-07-28 06:44] LABS: HEMATOCRIT 43.9 % (42.0-52.0); MEAN CELL VOLUME 96.3 fl (80.0-94.0); MEAN CORPUSCULAR HGB 30.7 pg (27.0-31.0); MEAN CORPUSCULAR HGB CONC 31.9 g/dl (33.0-37.0); MEAN PLATELET VOLUME 10.1 fl (9.6-12.3); PLATELET COUNT AUTOMATED 254 10*3/uL (130-400); RED BLOOD COUNT 4.56 10*6/uL (4.50-5.90); RED CELL DISTRI WIDTH 13.8 % (0-14.5); WHITE BLOOD COUNT 19.9 10*3/uL (4.8-10.8)
[2022-07-28 06:48] LABS: MANUAL DIFF REFLEX YES
[2022-07-28 07:19] LABS: THYROID STIM HORMONE (HS) 0.699 uIU/ml (0.550-4.780); TOTAL CELLS COUNTED 100 #CELLS
[2022-07-28 07:20] LABS: PLATELET SUFFICIENCY NORMAL (NORMAL)
[2022-07-29] VITALS: BP 108/55
[2022-07-29 06:27] LABS: MEAN CELL VOLUME 97.1 fl (80.0-94.0); MEAN CORPUSCULAR HGB 30.5 pg (27.0-31.0); MEAN CORPUSCULAR HGB CONC 31.4 g/dl (33.0-37.0); MEAN PLATELET VOLUME 10.4 fl (9.6-12.3); PLATELET COUNT AUTOMATED 279 10*3/uL (130-400); RED BLOOD COUNT 4.43 10*6/uL (4.50-5.90); RED CELL DISTRI WIDTH 13.9 % (0-14.5); WHITE BLOOD COUNT 21.8 10*3/uL (4.8-10.8)
[2022-07-29 06:36] LABS: MANUAL DIFF REFLEX YES
[2022-07-29 07:46] LABS: ATYPICAL LYMPHS 1 % (0-0); BURR CELLS FEW; PLATELET SUFFICIENCY NORMAL (NORMAL); POLYCHROMASIA SLIGHT; TOTAL CELLS COUNTED 100 #CELLS; TOXIC GRANULATION SLIGHT
[2022-07-29 07:47] LABS: POTASSIUM 4.4 mmol/L (3.4-5.1)
[2022-07-29 08:00] VITALS: BP 115/47
[2022-07-29 12:00] VITALS: BP 117/61
[2022-07-29] MEDS ORDERED: VIBRA-TAB100 MG PO (12:42)
[2022-07-29] MEDS ORDERED: PREDNISONE10 MG PO (12:42)
== END 2022-07-29 14:25 | disposition home or self-care (01) | DRG 871 ==
LOC: ED 21:15 → EDHOLD 07-28 00:21 → 5E 07-28 00:21
PROVIDERS: Emergency Medicine; Student in an Organized Health Care Education/Training Program; ADMIT Emergency Medicine; ATTEND Emergency Medicine
DX: A41.9 Sepsis, unspecified organism (principal); J15.9 Unspecified bacterial pneumonia; J96.01 Acute respiratory failure with hypoxia; N17.0 Acute kidney failure with tubular necrosis; J44.1 Chronic obstructive pulmonary disease with (acute) exacerbation; J44.0 Chronic obstructive pulmonary disease with (acute) lower respiratory infection; E44.1 Mild protein-calorie malnutrition; E11.65 Type 2 diabetes mellitus with hyperglycemia; R65.20 Severe sepsis without septic shock; G47.33 Obstructive sleep apnea (adult) (pediatric); I10 Essential (primary) hypertension; Z87.891 Personal history of nicotine dependence; Z88.0 Allergy status to penicillin; Z91.013 Allergy to seafood; Z79.51 Long term (current) use of inhaled steroids; Z79.899 Other long term (current) drug therapy; Z68.35 Body mass index [BMI] 35.0-35.9, adult